=== PATIENT | female | born 1995 | race American Indian/Alaskan Native ===

== ENCOUNTER 2017-06-19 13:56 | Inpatient (IN) | payer MEDICAID ==
[2017-06-19] MEDS ORDERED: MINERAL OIL PO PRN (15:23)
[2017-06-19] MEDS ORDERED: BRETHINE IVP PRN (15:23)
[2017-06-19] MEDS ORDERED: STADOL IV PRN (15:23)
[2017-06-19] MEDS ORDERED: BRETHINE SUB-Q PRN (15:23)
[2017-06-19] MEDS ORDERED: XYLOCAINE 2% INFILTRATI ONE (15:23)
[2017-06-19] MEDS ORDERED: CERVIDIL VG ONE (15:23)
[2017-06-19] MEDS ORDERED: ZOFRAN IV PRN (15:23)
[2017-06-19] MEDS ORDERED: NARCAN 0.4 MG/1 ML IV PRN (15:23)
[2017-06-19] MEDS ORDERED: CELESTONE SOLUSPAN IM ONE ×2 (15:31→19:39)
[2017-06-19] MEDS ORDERED: D50W (25GM) Syringe IV PRN (15:31)
[2017-06-19] MEDS ORDERED: HumuLIN R SUB-Q PRN (15:31)
[2017-06-19 15:37] LABS: Hematocrit 32.5 % (30.3-42.9); Mean Corpuscular HGB Conc 34 % (30-34); Mean Corpuscular Hemoglobin 25 pg (28-32); Mean Corpuscular Volume 75 fl (79-97); Platelet Count 181 K/mm3 (140-440); Red Blood Count 4.32 M/mm3 (3.65-5.03); Red Cell Distribution Width 15.2 % (13.2-15.2)
[2017-06-19] MEDS ORDERED: PITOCin/NS 20 UNIT/1000ML DRIP 20 UNITS/1,000 ML BAG IV SCH (16:00)
[2017-06-19] MEDS ORDERED: POLYCILLIN/NS 2 GM/100 ML 2 GM/100 ML BAG IV ONE ×2 (19:40→19:53)
[2017-06-19] MEDS: SUBLIMAZE IV PRN ×2 (20:14→23:41)
[2017-06-20] MEDS ORDERED: PITOCin/NS 30 UNIT/500ML 30,000 MILLIUNITS/500 ML BAG IV ONE (00:20)
[2017-06-20] MEDS: AMPICILLIN/NS 1 GM/50 ML 1 GM/50 ML BAG IV SCH ×2 (02:15→06:15)
[2017-06-20] MEDS: PITOCin/NS 30 UNIT/500ML 30 UNITS/500 ML BAG IV SCH ×8 (05:03→12:14)
[2017-06-20] MEDS: NORMOSOL-R PH 7.4 1,000 ML IV SCH ×3 (05:20→14:25)
--- NOTE | 2017-06-20 08:15 | History and Physical Report ---
History of Present Illness Date of examination: 06/20/17 Date of admission: 06/19/17 13:56 History of present illness: 22 yo LMP EDC 07/11/2017 @ 37 weeks gestation presented yesterday afternoon for induction of labor per [facility] recommendation. Seen by [facility] yesterday and for routine morbid obesity monitoring had had BPP 6/10 with RAFIA of 5.43cm. Cervidil placed in afternoon and was removed for tachysytole. Low dose PItocin started and ran through the night. Currently 1cm/60/-3/vtx. Reactive and Category 1 tracing. First trimester entry into care at 11 weeks gestation. course complicated by morbid obesity with COBY comang't. 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 GBS unknown at initiation of induction. Voiced positive FM, negative LOF, contractions or VB. Past History Past Medical History: other (+) Past Surgical History: no surgical history Family/Genetic History: none Social history: no significant social history - Obstetrical History Expected Date of Delivery: 07/11/17 Actual Gestation: 37 Week(s) 0 Day(s) : 1 Medications and Allergies Allergies Allergy/AdvReac Type Severity Reaction Status Date / Time No Known Allergies Allergy Unverified 03/06/15 09:35 Home Medications Medication Instructions Recorded Confirmed Last Taken Type No Known Home Medications [No 06/19/17 06/19/17 Unknown History Reported Home Medications] Active Meds: Active Medications Butorphanol Tartrate (Stadol) 2 mg IV Q2H PRN PRN Reason: Pain , Severe (7-10) Ephedrine Sulfate (Ephedrine Sulfate) 10 mg IV Q2M PRN PRN Reason: Hypotension Fentanyl (Sublimaze) 100 mcg IV Q2H PRN PRN Reason: Labor Pain Last Admin: 06/19/17 23:41 Dose: 100 mcg Parenteral Electrolytes (Normosol-R Ph 7.4) 1,000 mls @ 125 mls/hr IV DIRECT NICOLETTE Last Admin: 06/20/17 05:20 Dose: 125 mls/hr Oxytocin/Sodium Chloride (Pitocin/Ns 20 Unit/1000ml Drip) 20 units in 1,000 mls @ 125 mls/hr IV DIRECT NICOLETTE Oxytocin/Sodium Chloride (Pitocin/Ns 30 Unit/500ml) 30 units in 500 mls @ 4 mls /hr IV TITR NICOLETTE; Protocol Last Admin: 06/20/17 05:03 Dose: 2 mls/hr, 2 mls/hr Ampicillin Sodium (Ampicillin/Ns 1 Gm/50 Ml) 1 gm in 50 mls @ 100 mls/hr IV Q4HR NICOLETTE; Protocol Last Admin: 06/20/17 06:15 Dose: 100 mls/hr Mineral Oil (Mineral Oil) 30 ml PO QHS PRN PRN Reason: Constipation Naloxone HCl (Narcan 0.4 Mg/1 Ml) 0.1 mg IV Q2MIN PRN PRN Reason: Res Rate </= 8 or 02 SAT < 92% Ondansetron HCl (Zofran) 4 mg IV Q8H PRN PRN Reason: Nausea And Vomiting Terbutaline Sulfate (Brethine) 0.25 mg SUB-Q ONCE PRN PRN Reason: Hyperstimulation/Hypertonicity Terbutaline Sulfate (Brethine) 0.25 mg IVP ONCE PRN PRN Reason: Hyperstimulation/Hypertonicity Review of Systems All systems: negative - Vital Signs Vital signs: Vital Signs Temp Pulse Resp BP Pulse Ox 96.7 F L 103 H 20 109/69 98 06/19/17 14:42 06/19/17 14:42 06/19/17 14:42 06/19/17 14:42 06/19/17 14:42 Temp Pulse Resp BP Pulse Ox 96.7 F L 93 H 20 118/57 98 06/19/17 14:42 06/20/17 03:41 06/19/17 14:42 06/20/17 03:41 06/20/17 02:12 - Physical Exam Abdomen: Positive: normal appearance Genitourinary (Female): Positive: normal external genitalia, normal perenium - Obstetrical FHR: category 1 Uterine Contraction Monitor Mode: External Cervical Dilatation: 1 Cervical Effacement Percentage: 60 station: -3 Results Result Diagrams: 06/19/17 15:26 Abnormal lab results 06/19/17 Range/Units 15:26 MCV 75 L (79-97) fl MCH 25 L (28-32) pg All other labs normal. Assessment and Plan A: IUP at 37 weeks Induction of Labor Lagging Femur Length (below 10%) Oligohydramnios EFW 6lbs (25%) Nonreasurring BPP 3/13 6/10 Unfavorable Cervix Unknown GBS Status P: Hooker Bulb Active Lyndon't Pitocin
--- NOTE | 2017-06-20 08:44 | Event Note ---
Date: 06/20/17 Patient voiced only received 3 tabs of medication for trichomonas. Casar now.
[2017-06-20] MEDS ORDERED: FLAGYL PO NR (09:00)
--- NOTE | 2017-06-20 13:06 | Event Note ---
Date: 06/20/17 IOL for oligo at 37 weeks patient without complaints NST cat 1 pelvic /-2 Arom clear iupc and fse continue pitocin offer epidural expect vaginal delivery
--- NOTE | 2017-06-20 13:32 | Anesthesia Consultation ---
Anesthesia Consult and Med Hx Date of service: 06/20/17 - Airway Anesthetic Teeth Evaluation: Good ROM Head & Neck: Adequate Mental/Hyoid Distance: Adequate Mallampati Class: Class II Intubation Access Assessment: Probably Good - Pre-Operative Health Status ASA Pre-Surgery Classification: ASA2 Proposed Anesthetic Plan: Epidural - Pulmonary Hx Asthma: No COPD: No Hx Pneumonia: No - Cardiovascular System Hx Hypertension: No - Central Nervous System Hx Seizures: No Hx Psychiatric Problems: No - Endocrine Hx Renal Disease: No Hx End Stage Renal Disease: No Hx Hypothyroidism: No Hx Hyperthyroidism: No - Hematic Hx Anemia: No Hx Sickle Cell Disease: Yes (trait) - Other Systems Hx Alcohol Use: No
[2017-06-20] MEDS ORDERED: NARCAN 2 MG/2 ML IV PRN (13:33)
[2017-06-20] MEDS ORDERED: ePHEDrine SULFATE IV PRN (13:33)
[2017-06-20] MEDS: ePHEDrine SULFATE IV PRN ×2 (13:58→14:01)
[2017-06-20] MEDS ORDERED: fentaNYL-BUPIV 2 MCG/ML-0.125% 200 MCG/100 ML BAG EPIDURAL SCH ×2 (14:00→20:00)
[2017-06-20] MEDS ORDERED: BICITRA PO ONE (16:00)
[2017-06-20] MEDS ORDERED: ANCEF/STERILE WATER 2 GM/20 ML 2 GM/20 ML SYRINGE IV NR (16:00)
[2017-06-20] MEDS ORDERED: PEPCID IV ONE ×2 (16:00→16:45)
[2017-06-20] MEDS ORDERED: NORMOSOL-R PH 7.4 1,000 ML IV SCH (16:00)
[2017-06-20] MEDS ORDERED: REGLAN IV ONE (16:00)
[2017-06-20] MEDS ORDERED: BICITRA ONE (16:45)
[2017-06-20] MEDS ORDERED: REGLAN ONE (16:45)
[2017-06-20] MEDS ORDERED: ANCEF/STERILE WATER 2 GM/20 ML 2 GM/20 ML SYRINGE IV ONE (16:45)
[2017-06-20] MEDS ORDERED: NACL 0.9% 1000 ML 1,000 ML ONE (16:54)
--- NOTE | 2017-06-20 17:17 | Event Note ---
Date: 06/20/17 was notified by nurse patient had deep variable decels to 60s with late componenet remote from delivery with sve /2 discussed plan initiated amnioinfusion discussed primary csec for nrfht understands r/b/a which include bleeding infection, damage to pelvic and non pelvic organs risk of hysterectomy , risk of . she desires to proceed
[2017-06-20] MEDS ORDERED: TORADOL ONE (17:38)
[2017-06-20] MEDS ORDERED: ZOFRAN ONE (17:38)
[2017-06-20] MEDS ORDERED: XYLOCAINE MPF 2% ONE ×4 (17:38→17:48)
[2017-06-20] MEDS ORDERED: METHERGINE IM ONE (17:48)
[2017-06-20] MEDS ORDERED: ASTRAMORPH PF 10MG/10ML ONE (17:52)
--- NOTE | 2017-06-20 18:25 | Operative Report ---
Operative Report Operative Report: DATE OF OPERATION: 06/20/17 PREOPERATIVE DIAGNOSES: 1. Intrauterine gestation at 37 weeks 2. [facility] POSTOPERATIVE DIAGNOSES: 1. BETH 3. short cord OPERATION PERFORMED: Primary low transverse section. SURGEON: Ally Devries MD ANESTHESIA: Epidural. COMPLICATIONS: None. ESTIMATED BLOOD LOSS: 600 mL. DRAINS: Hooker catheter to the bladder. SPECIMENS TO PATHOLOGY: Cord blood for routine testing. OPERATIVE FINDINGS: A viable female infant with Apgars of 8 and 8 and birthweight of 6 pounds 10 ounces was delivered from a cephalic presentationposterior position. The cord contained 3 vessels. There was normal anterior fundal placenta. The amniotic fluid was clear. The uterus, fallopian tubes and ovaries were normal. DESCRIPTION OF OPERATION: The patient was brought to the operating suite in stable condition with epidural anesthesia on board and an indwelling catheter in place in the bladder. The patient was placed supine on the operating room table and rolled to her left side with a wedge. The abdomen was prepped and draped in standard fashion for section. After testing with forceps to assure an adequate anesthetic level, the surgery was commenced. We had counseled the patient extensively regarding the risks of the surgery including but not limited to stroke, embolus, phlebitis, pain, infection, hemorrhage, as well as injury to the infant and the internal organs such as the bowel, bladder, blood vessels, nerves, kidneys, ureters and pelvic organs. The patient was aware of the postoperative morbidity issues and recovery timeframes. The patient was aware she can form adhesions, which can result in obstruction of loop of bowel or ureter or chronic pain. She was aware that should she have hemorrhage and require blood transfusion, there was a small chance for exposure to hepatitis or HIV disease. With the scalpel, a Pfannenstiel skin incision was made. Dissection was carried down sharply through the subcutaneous tissues and fascia in a transverse plane with the scalpel, electrocautery and curved Shepherd scissors. The fascia was sharply freed up superiorly and inferiorly from the underlying rectus muscles, which were bluntly and sharply divided. The peritoneum was entered carefully in a clear space with a curved hemostat. The peritoneal incision was then extended vertically with Metzenbaum scissors. A retractor and bladder blade were placed. A bladder flap was created by incising transversely through the peritoneum and vesicouterine fold and then bluntly dissecting the bladder distally. With the scalpel, a low transverse hysterotomy was commenced. The serosa and myometrium were scored with the scalpel. The uterine cavity was actually entered bluntly with a curved hemostat. The uterine incision was then extended laterally with the grinder operator external tool's fingers. An intrauterine hand was placed and the head of the was brought up out of the pelvis into the uterine incision. With fundal pressure, he was delivered without difficulty. The nasopharynx and oropharynx were suctioned. The cord was doubly clamped and transected. The was then handed off to the nursery personnel. Apgars were good at 8 and 8. A cord pH was obtained, which subsequently revealed a normal value. Further cord blood was collected for routine testing. Intravenous Pitocin administered. The placenta was manually removed. The uterine cavity was then curetted with a dry sponge and freed of the remaining membranes. The edges of the uterine incision were grasped with Puentes clamps. With the massage and the Pitocin, the uterus began to firm up normally. The uterine incision was then closed in 2 layers of 0 Vicryl sutures. The first suture was placed to the endometrium and myometrium. The second suture was placed through the endopelvic fascia and also reincorporated the bladder flap peritoneum. Peritoneal lavage was then performed. The pelvis and gutters were irrigated and suctioned and cleared of all blood and clots and amniotic fluid. The uterine incision was reinspected to assure hemostasis. The uterus, tubes and ovaries were inspected and were normal. Once we were satisfied with the hemostasis, attention was turned to closure of the abdominal incision. The peritoneum, muscles and fascia were closed in layers using 0-Vicryl sutures. The subcutaneous tissue was closed with 3-0 plain sutures. The skin was closed with a subcuticular suture of 4-0 Vicryl followed by benzoin, Steri-Strips and a Telfa dressing. The patient was moved to the recovery room in stable condition with the Hooker catheter draining clear urine. Instruments, sponge and needle counts were reported as correct. Estimated blood loss was 600 mL. There were no complications.
[2017-06-20] MEDS ORDERED: PHENERGAN PR PRN ×2 (18:26→19:01)
[2017-06-20] MEDS ORDERED: MORPHINE IV PRN ×3 (18:26→18:36)
[2017-06-20] MEDS ORDERED: LANSINOH TP PRN (18:26)
[2017-06-20] MEDS ORDERED: MILK OF MAGNESIA PO PRN (18:26)
[2017-06-20] MEDS ORDERED: TUCKS PAD TP PRN (18:26)
[2017-06-20] MEDS ORDERED: TYLENOL PO PRN (18:26)
[2017-06-20] MEDS ORDERED: TORADOL IV PRN ×2 (18:26)
[2017-06-20] MEDS ORDERED: NORCO 5/325 PO PRN (18:26)
[2017-06-20] MEDS ORDERED: MYLICON PO PRN (18:26)
[2017-06-20] MEDS ORDERED: NARCAN 0.4 MG/1 ML IV PRN ×2 (18:26→19:01)
[2017-06-20] MEDS ORDERED: ANUCORT-HC PR PRN (18:26)
[2017-06-20] MEDS ORDERED: SENOKOT PO PRN (18:26)
[2017-06-20] MEDS ORDERED: SODIUM CHLORIDE FLUSH SYRINGE 10 ML IV NR (19:00)
[2017-06-20] MEDS ORDERED: PITOCin/NS 20 UNIT/1000ML DRIP 20 UNITS/1,000 ML BAG IV SCH ×2 (19:00→20:00)
[2017-06-20] MEDS ORDERED: NUBAIN IV PRN (19:01)
[2017-06-20] MEDS ORDERED: DILAUDID IV PRN (19:01)
[2017-06-20] MEDS ORDERED: PHENERGAN PO PRN (19:01)
[2017-06-20] MEDS ORDERED: BENADRYL IV PRN (19:01)
[2017-06-20] MEDS ORDERED: ZOFRAN IV PRN (19:01)
[2017-06-20] MEDS ORDERED: SODIUM CHLORIDE FLUSH SYRINGE 10 ML IV SCH (20:00)
[2017-06-20] MEDS: D5LR 1,000 ML IV SCH (23:48)
[2017-06-21] MEDS ORDERED: BOOSTRIX IM ONE (06:00)
[2017-06-21] MEDS ORDERED: M-M-R II VACCINE SUB-Q ONE (06:00)
[2017-06-21] MEDS: D5LR 1,000 ML IV SCH (06:40)
--- NOTE | 2017-06-21 08:36 | Progress Note ---
Assessment and Plan A/P POD #1 s/p primary csec VSS bottle feeding pain well controlled encourage ambulation continue present mgt await Post op cbc Subjective - Subjective Date of service: 06/21/17 Principal diagnosis: s/p primary csec for nrfht Patient reports: appetite normal, voiding normally, pain well controlled, flatus , ambulating normally : doing well, bottle feeding Objective - Vital Signs Latest vital signs: Vital Signs Temp Pulse Resp BP Pulse Ox 06/21/17 04:58 98.4 F 85 20 128/68 96 06/21/17 00:32 97.9 F 90 20 129/62 06/20/17 20:35 98.3 F 99 H 20 115/55 100 06/20/17 19:40 92 H 17 131/80 100 06/20/17 19:31 98.5 F 06/20/17 19:30 92 H 19 121/67 99 06/20/17 19:25 92 H 18 122/65 100 06/20/17 19:20 99 H 18 116/55 100 06/20/17 19:14 103 H 22 117/74 100 06/20/17 19:12 99 H 06/20/17 19:10 100 H 18 118/67 100 18 19:05 101 H 19 129/74 100 06/20/17 19:00 95 H 20 122/70 100 06/20/17 18:55 94 H 17 117/68 100 18 18:50 91 H 16 121/62 100 18 18:40 100 H 14 115/45 100 06/20/17 18:30 94 H 16 113/53 100 06/20/17 18:24 104 H 15 100 18 17:06 129 H 100 06/20/17 17:01 132 H 100 18 16:57 121 H 96/47 18 16:56 121 H 100 18 16:51 108 H 100 18 16:46 110 H 100 18 16:42 116 H 92/45 18 16:41 114 H 100 18 16:36 113 H 100 18 16:31 110 H 100 06/20/17 16:26 105 H 93/53 100 03/14/18 16:21 102 H 100 03/14/18 16:16 111 H 105/51 100 03/14/18 16:12 114 H 92 03/14/18 16:11 103 H 100 03/14/18 16:06 99 H 100 03/14/18 16:04 18 03/14/18 16:01 109 H 100 03/14/18 15:56 103 H 103/53 100 03/14/18 15:51 105 H 100 03/14/18 15:46 109 H 100 03/14/18 15:42 100 H 107/51 03/14/18 15:41 97 H 100 03/14/18 15:36 104 H 100 03/14/18 15:31 112 H 100 03/14/18 15:28 104 H 90/52 03/14/18 15:26 109 H 100 03/14/18 15:21 91 H 100 03/14/18 15:17 111 H 126/58 03/14/18 15:16 95 H 100 03/14/18 15:14 110 H 85/43 03/14/18 15:12 108 H 87/45 03/14/18 15:11 112 H 100 03/14/18 15:08 116 H 100 03/14/18 15:03 110 H 100 03/14/18 14:58 105 H 100 03/14/18 14:53 118 H 113/56 100 03/14/18 14:52 67 85 03/14/18 14:48 114 H 100 03/14/18 14:43 111 H 122/54 03/14/18 14:38 117 H 104/57 03/14/18 14:32 118 H 102/59 03/14/18 14:27 123 H 101/58 03/14/18 14:22 114 H 100/55 03/14/18 14:17 113 H 98/51 03/14/18 14:14 108 H 108/55 03/14/18 14:07 100 H 116/59 03/14/18 14:02 100 H 112/65 03/14/18 13:58 85 104/59 03/14/18 13:56 96 H 110/59 03/14/18 13:55 101 H 121/56 03/14/18 13:53 97.6 F 18 03/14/18 13:52 94 H 106/58 03/14/18 13:50 99 H 114/56 06/20/17 13:49 101 H 122/59 06/20/17 11:39 96 H 100/56 06/20/17 11:24 98 H 105/59 06/20/17 10:39 113 H 114/64 06/20/17 10:25 100 H 107/53 06/20/17 10:09 103 H 98/56 06/20/17 09:54 90 100/59 06/20/17 09:39 85 97/57 06/20/17 09:25 93 H 113/77 06/20/17 09:10 95 H 136/68 06/20/17 08:59 111 H 99 06/20/17 08:54 84 116/72 97 06/20/17 08:49 102 H 98 06/20/17 08:45 96.9 F L 18 06/20/17 08:44 93 H 98 06/20/17 08:39 86 113/75 98 Intake and Output 06/20/17 06/21/17 06/21/17 23:59 07:59 15:59 Intake Total 2000 978.333 Output Total 150 400 Balance 1850 578.333 Intake: IV 2000 858.333 D5lr 1,000 ml @ 125 mls/ 858.333 hr IV DIRECT NICOLETTE Rx#: [id number] Intake, Free Water 120 Output: Urine 150 400 Indwelling Catheter 400 Other: Total, Output Amount 400 Estimated Blood Loss 600 - Exam Breasts: Present: normal Cardiovascular: Present: Regular rate, Normal S1 Lungs: Present: Clear to auscultation, Normal air movement Abdomen: Present: normal appearance, soft, normal bowel sounds. Absent: distention, tenderness, guarding Vulva: both: normal Uterus: Present: normal, firm, fundal height below umbilicus. Absent: bogginess , tenderness Extremities: Present: normal Deep Tendon Reflex Grade: Normal +2 Incision: Present: normal, dressed
[2017-06-21] MEDS ORDERED: BENADRYL PO PRN (08:38)
[2017-06-21 09:02] LABS: Hemoglobin 9.5 gm/dl (10.1-14.3)
[2017-06-21] MEDS: MOTRIN PO PRN (16:18)
[2017-06-21] MEDS: PERCOCET 5/325 PO PRN (19:28)
[2017-06-22] MEDS: PERCOCET 5/325 PO PRN ×3 (05:46→22:40)
--- NOTE | 2017-06-22 06:34 | Progress Note ---
Assessment and Plan A/P POD #2 s/p primary csec VSS bottle feeding and breast feeding pain well controlled encourage ambulation continue present mgt h/h 11/32.5-9.5/29 d/c home tomorrow Subjective - Subjective Date of service: 06/22/17 Principal diagnosis: s/p primary csec for nrfht Patient reports: appetite normal, voiding normally, pain well controlled, flatus , bowel movement, ambulating normally : doing well Objective - Vital Signs Latest vital signs: Vital Signs Temp Pulse Resp BP Pulse Ox 06/22/17 01:01 97.8 F 64 18 128/61 98 06/21/17 16:54 97.9 F 72 18 126/65 100 06/21/17 12:46 97.9 F 85 20 126/75 99 06/21/17 07:57 98.3 F 83 18 116/64 99 Intake and Output 06/21/17 06/21/17 06/22/17 15:59 23:59 07:59 Intake Total 360 240 360 Output Total 650 225 Balance -290 15 360 Intake: Oral 360 240 360 Output: Urine 650 225 Void 650 225 Other: Total, Intake Amount 240 240 360 Total, Output Amount 250 225 Voiding Method Toilet # Voids Void 2 - Exam Breasts: Present: normal Cardiovascular: Present: Regular rate, Normal S1 Lungs: Present: Clear to auscultation, Normal air movement Abdomen: Present: normal appearance, soft, normal bowel sounds. Absent: distention, guarding Vulva: both: normal Uterus: Present: normal, firm, fundal height below umbilicus. Absent: bogginess , tenderness Extremities: Present: tenderness Deep Tendon Reflex Grade: Normal +2 Incision: Present: normal, dry, intact - Labs Labs: Abnormal lab results 06/21/17 Range/Units 07:44 Hgb 9.5 L (10.1-14.3) gm/dl Hct 29.0 L (30.3-42.9) %
--- NOTE | 2017-06-22 06:34 | Discharge Summary ---
Providers - Providers Date of Admission: 06/19/17 13:56 Date of discharge: 06/22/17 Attending physician: TANA MARY Primary care physician: TANA MARY Hospitalization Reason for admission: induction of labor Delivery: Procedure: primary low transverse Episiotomy: none Laceration: none Incision: normal, dry, intact Other procedures: none complications: none Discharge diagnosis: IUP at term delivered baby: female Condition at discharge: Good Disposition: DC-01 TO HOME OR SELFCARE Plan - Discharge Medications Prescriptions: Ferrous Sulfate 325 mg PO BID #60 tablet. Ibuprofen [Motrin] 600 mg PO Q8H PRN #30 tablet PRN Reason: Pain oxyCODONE /ACETAMINOPHEN [Percocet 5/325] 1 tab PO Q6HR PRN #30 tablet PRN Reason: Pain - Provider Discharge Summary Activity: routine, no sex for 6 weeks, no strenuous exercise Diet: routine Instructions: routine Additional instructions: [] Smoking cessation referral if applicable(refer to patient education folder for contact #) [] Refer to [facility]'s [facility] Booklet Call your doctor immediately for: * Fever > 100.5 * Heavy vaginal bleeding ( >1 pad per hour) * Severe persistent headache * Shortness of breath * Reddened, hot, painful area to leg or breast * Drainage or odor from incision. * Keep incision clean and dry at all times and follow doctor's instructions regarding bathing/showering - Follow up plan Follow up: TANA MARY MD [Primary Care Provider] - 14 Days
[2017-06-22] MEDS: FEOSOL PO SCH (10:38)
[2017-06-22] MEDS: PRENATAL VITAMIN PO SCH (10:38)
[2017-06-22] MEDS: MOTRIN PO PRN (15:00)
[2017-06-23] MEDS: PERCOCET 5/325 PO PRN (04:01)
[2017-06-23] MEDS: MOTRIN PO PRN (04:02)
[2017-06-23] MEDS: FEOSOL PO SCH (10:09)
[2017-06-23] MEDS: PRENATAL VITAMIN PO SCH (10:09)
[2017-06-23 10:34] VITALS: BP 135/69
== END 2017-06-23 10:59 | disposition home or self-care (01) | DRG 765 ==
LOC: LD 13:56 → OB 06-20 20:08
PROVIDERS: ADMIT Obstetrics & Gynecology; ATTEND Obstetrics & Gynecology
PROC: 10D00Z1 Extraction of Products of Conception, Low, Open Approach (ICD-10-PCS; principal; 2017-06-22)
PROC: 10907ZC Drainage of Amniotic Fluid, Therapeutic from Products of Conception, Via Natural or Artificial Opening (ICD-10-PCS; 2017-06-22)
PROC: 10H07YZ Insertion of Other Device into Products of Conception, Via Natural or Artificial Opening (ICD-10-PCS; 2017-06-22)
PROC: 3E0234Z Introduction of Serum, Toxoid and Vaccine into Muscle, Percutaneous Approach (ICD-10-PCS; 2017-06-23)
DX: O41.03X0 Oligohydramnios, third trimester, not applicable or unspecified (principal); O98.313 Other infections with a predominantly sexual mode of transmission complicating pregnancy, third trimester; O99.214 Obesity complicating childbirth; E66.01 Morbid (severe) obesity due to excess calories; O99.02 Anemia complicating childbirth; O76 Abnormality in fetal heart rate and rhythm complicating labor and delivery; Z3A.37 37 weeks gestation of pregnancy; Z37.0 Single live birth; Z23 Encounter for immunization; Z68.38 Body mass index [BMI] 38.0-38.9, adult; O69.3XX0 Labor and delivery complicated by short cord, not applicable or unspecified; D57.3 Sickle-cell trait; A59.9 Trichomoniasis, unspecified
CPT/HCPCS: 36415; 59200; 85014; 85018; 85027; 86592; 86850; 86900; 86901; 88307; 90471; 90715; 99211; G0463; J0290; J0690; J0702; J1200; J1885; J2210; J2274; J2300; J2405; J2590; J2765; J3010; J7030; J7121

== ENCOUNTER 2018-10-16 20:01 | Emergency (ER) | payer MEDICAID ==
--- NOTE | 2018-10-16 21:07 | Emergency Department Report ---
Blank Doc - Documentation Documentation: This is a 23-year-old female that presents with lower back pain s/p heavy lift ing. Denies any injuries. This initial assessment/diagnostic orders/clinical plan/treatment(s) is/are subject to change based on patient's health status, clinical progression and re- assessment by fellow clinical providers in the ED. Further treatment and workup at subsequent clinical providers discretion. Patient/guardians urged not to elope from the ED as their condition may be serious if not clinically assessed and managed. Initial orders include: 1- Patient sent to [facility] for further evaluation and treatment
[2018-10-16 21:09] VITALS: BP 138/62
[2018-10-16] MEDS ORDERED: FLEXERIL ONE (22:30)
[2018-10-16] MEDS ORDERED: TYLENOL ONE (22:30)
[2018-10-16] MEDS ORDERED: IBUPROFEN PO ONE ×2 (22:30)
[2018-10-16] MEDS ORDERED: FLEXERIL PO ONE (22:30)
[2018-10-16] MEDS ORDERED: TYLENOL PO ONE (22:30)
--- NOTE | 2018-10-16 22:54 | Emergency Department Report ---
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 She reports initially hurting her back and shoulder about one month ago, has been nagging pain off and on since that time. States she had reaggravated or even worsened previous injury while lifting heavy boxes of food on yesterday. Pain is to the left shoulder blade and mid back region is worse with pushing homework and overhead. No numbness or tingling. No coughing, no congestion, no fever, chills, sweats, palpitations, nausea, vomiting. MD Complaint: back pain Similar Symptoms Previously: Yes Place: work Severity: mild Quality: dull Consistency: constant Improves With: none Worsens With: none Context: while lifting Associated Symptoms: denies: chest pain, numbness, cough, difficulty urinating, incontinence, fever/chills, constipation, headaches, abdominal pain, rash, seizure, shortness of breath, syncope - Related Data Previous Rx's Medication Instructions Recorded Last Taken Type Ferrous Sulfate 325 mg PO BID #60 tablet. 06/20/17 Unknown Rx Ibuprofen [Motrin] 600 mg PO Q8H PRN #30 tablet 06/20/17 Unknown Rx oxyCODONE /ACETAMINOPHEN [Percocet 1 tab PO Q6HR PRN #30 tablet 06/20/17 Unknown Rx 5/325] Ketorolac [Toradol] 10 mg PO Q6H PRN #15 tablet 10/16/18 Unknown Rx methOCARBAMOL [Robaxin TAB] 750 mg PO Q8H PRN #14 tablet 10/16/18 Unknown Rx Allergies Allergy/AdvReac Type Severity Reaction Status Date / Time No Known Allergies Allergy Unverified 03/06/15 09:35 ED Review of Systems ROS: Stated complaint: BACK AND SHOULDER PAIN Other details as noted in HPI Comment: All other systems reviewed and negative ED Past Medical Hx - Past Medical History Previous Medical History?: Yes Hx Hypertension: No Hx Congestive Heart Failure: No Hx Diabetes: No Hx Deep Vein Thrombosis: No Hx Renal Disease: No Hx Sickle Cell Disease: Yes (trait) Hx Seizures: No Hx Psychiatric Treatment: Yes (DEPRESSION) Hx Asthma: No Hx COPD: No Hx HIV: No - Surgical History Past Surgical History?: No Additional Surgical History: x1, 2018 - Social History Smoking Status: Never Smoker Substance Use Type: None - Medications Home Medications: Home Medications Medication Instructions Recorded Confirmed Last Taken Type Ferrous Sulfate 325 mg PO BID #60 tablet. 06/20/17 Unknown Rx Ibuprofen [Motrin] 600 mg PO Q8H PRN #30 tablet 06/20/17 Unknown Rx oxyCODONE /ACETAMINOPHEN [Percocet 1 tab PO Q6HR PRN #30 tablet 06/20/17 Unknown Rx 5/325] Ketorolac [Toradol] 10 mg PO Q6H PRN #15 tablet 10/16/18 Unknown Rx methOCARBAMOL [Robaxin TAB] 750 mg PO Q8H PRN #14 tablet 10/16/18 Unknown Rx ED Physical Exam - General Limitations: No Limitations General appearance: alert, in no apparent distress - Head Head exam: Present: atraumatic, normocephalic - Eye Eye exam: Present: normal appearance, PERRL Pupils: Present: normal accommodation - ENT ENT exam: Present: normal exam, normal orophraynx, mucous membranes moist, TM's normal bilaterally - Neck Neck exam: Present: normal inspection, full ROM - Respiratory Respiratory exam: Present: normal lung sounds bilaterally. Absent: respiratory distress, wheezes, rales, chest wall tenderness, accessory muscle use, decreased breath sounds - Cardiovascular Cardiovascular Exam: Present: regular rate, normal rhythm. Absent: systolic murmur, diastolic murmur, rubs, gallop - GI/Abdominal GI/Abdominal exam: Present: soft, normal bowel sounds - Extremities Exam Extremities exam: Present: normal inspection, full ROM, normal capillary refill - Back Exam Back exam: Present: normal inspection, tenderness, paraspinal tenderness (tenderness of the left upper trapezial region and the upper aspect of the latissimus dorsa. No midline tenderness. Full range of motion. Pulses 2+. Capillary refill is brisk. Normal Neri and Yamhill's test) - Neurological Exam Neurological exam: Present: alert, oriented X3, CN II-XII intact, normal gait - Psychiatric Psychiatric exam: Present: normal affect, normal mood - Skin Skin exam: Present: warm, dry, intact, normal color. 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 Left looks like is secondary to a muscle strain. Culture about a position of ice and anti-inflammatory also restrictive lifting duties at work for the next few days. Critical care attestation.: If time is entered above; I have spent that time in minutes in the direct care of this critically ill patient, excluding procedure time. ED Disposition Clinical Impression: Back strain Disposition: DC- TO HOME OR SELFCARE Is pt being admited?: No Does the pt Need Aspirin: No Condition: Stable Instructions: Muscle Strain (ED) Prescriptions: methOCARBAMOL [Robaxin TAB] 750 mg PO Q8H PRN #14 tablet PRN Reason: Pain, Moderate (4-6) Ketorolac [Toradol] 10 mg PO Q6H PRN #15 tablet PRN Reason: Pain Referrals: LISA NORMAN MD [Primary Care Provider] - 3-5 Days
== END 2018-10-16 23:25 | disposition home or self-care (01) ==
LOC: ED 20:01
DX: S29.012A Strain of muscle and tendon of back wall of thorax, initial encounter (principal); F32.9 Major depressive disorder, single episode, unspecified; X50.0XXA Overexertion from strenuous movement or load, initial encounter; Y93.89 Activity, other specified; Y92.89 Other specified places as the place of occurrence of the external cause; Y99.8 Other external cause status
CPT/HCPCS: 99282

== ENCOUNTER 2019-04-21 09:16 | Emergency (ER) | payer OTHER, MEDICAID ==
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
[2019-04-21 13:40] VITALS: BP 130/71
== END 2019-04-21 13:39 | disposition home or self-care (01) ==
LOC: ED 09:16
DX: M54.5 Low back pain (principal); M54.2 Cervicalgia; M25.512 Pain in left shoulder; G89.29 Other chronic pain; F32.9 Major depressive disorder, single episode, unspecified; E66.9 Obesity, unspecified; Z68.41 Body mass index [BMI] 40.0-44.9, adult; Z79.899 Other long term (current) drug therapy

== ENCOUNTER 2019-09-08 18:51 | Emergency (ER) | payer BC, MEDICAID ==
--- NOTE | 2019-09-08 22:06 | Emergency Department Report ---
- General Chief complaint: Skin/Abscess/Foreign Body Stated complaint: BUG BITE Time Seen by Provider: 09/08/19 21:15 Source: patient Mode of arrival: Ambulatory Limitations: No Limitations - History of Present Illness Initial comments: This is a 24-year-old female nontoxic, well nourished in appearance, no acute signs of distress presents to the ED with c/o of redness and pain to right leg pain. Patient stated is unsure what bite her. Patient denies any pus or drainage. Patient denies any fever, chills, nausea, vomiting, chest pain, shortness of breath, headache or stiff neck. Patient denies any allergies or significant past medical history. Denies being UTD with tetanus. MD complaint: insect bite/sting -: days(s) Tetanus Up to Date: no Location: LLE Severity: mild Severity scale (0 -10): 8 Quality: aching Consistency: constant Improves with: none Worsens with: none Context: none Associated symptoms: denies other symptoms Treatments Prior to Arrival: none - Related Data Previous Rx's Medication Instructions Recorded Last Taken Type Ferrous Sulfate 325 mg PO BID #60 tablet. 06/20/17 Unknown Rx Ibuprofen [Motrin] 600 mg PO Q8H PRN #30 tablet 06/20/17 Unknown Rx oxyCODONE /ACETAMINOPHEN [Percocet 1 tab PO Q6HR PRN #30 tablet 06/20/17 Unknown Rx 5/325] Ketorolac [Toradol] 10 mg PO Q6H PRN #15 tablet 10/16/18 Unknown Rx methOCARBAMOL [Robaxin TAB] 750 mg PO Q8H PRN #14 tablet 10/16/18 Unknown Rx Clindamycin [Clindamycin CAP] 300 mg PO Q8H #21 cap 09/08/19 Unknown Rx Naproxen 500 mg PO Q12H PRN #12 tablet 09/08/19 Unknown Rx Allergies Allergy/AdvReac Type Severity Reaction Status Date / Time No Known Allergies Allergy Verified 09/08/19 19:17 Abscess Boil HPI - HPI Chief Complaint: Skin/Abscess/Foreign Body Stated Complaint: BUG BITE Time Seen by Provider: 09/08/19 21:15 Home Medications: Previous Rx's Medication Instructions Recorded Last Taken Type Ferrous Sulfate 325 mg PO BID #60 tablet. 06/20/17 Unknown Rx Ibuprofen [Motrin] 600 mg PO Q8H PRN #30 tablet 06/20/17 Unknown Rx oxyCODONE /ACETAMINOPHEN [Percocet 1 tab PO Q6HR PRN #30 tablet 06/20/17 Unknown Rx 5/325] Ketorolac [Toradol] 10 mg PO Q6H PRN #15 tablet 10/16/18 Unknown Rx methOCARBAMOL [Robaxin TAB] 750 mg PO Q8H PRN #14 tablet 10/16/18 Unknown Rx Clindamycin [Clindamycin CAP] 300 mg PO Q8H #21 cap 09/08/19 Unknown Rx Naproxen 500 mg PO Q12H PRN #12 tablet 09/08/19 Unknown Rx Allergies/Adverse Reactions: Allergies Allergy/AdvReac Type Severity Reaction Status Date / Time No Known Allergies Allergy Verified 09/08/19 19:17 ED Review of Systems ROS: Stated complaint: BUG BITE Other details as noted in HPI Constitutional: denies: chills, fever Eyes: denies: eye pain, eye discharge, vision change ENT: denies: ear pain, throat pain Respiratory: denies: cough, shortness of breath, wheezing Cardiovascular: denies: chest pain, palpitations Endocrine: no symptoms reported Gastrointestinal: denies: abdominal pain, nausea, diarrhea Genitourinary: denies: urgency, dysuria, discharge Musculoskeletal: denies: back pain, joint swelling, arthralgia Skin: denies: rash, lesions Neurological: denies: headache, weakness, paresthesias Psychiatric: denies: anxiety, depression Hematological/Lymphatic: denies: easy bleeding, easy bruising ED Past Medical Hx - Past Medical History Previous Medical History?: Yes Hx Hypertension: No Hx Congestive Heart Failure: No Hx Diabetes: No Hx Deep Vein Thrombosis: No Hx Renal Disease: No Hx Sickle Cell Disease: Yes (trait) Hx Seizures: No Hx Psychiatric Treatment: Yes (DEPRESSION) Hx Asthma: No Hx COPD: No Hx HIV: No - Surgical History Past Surgical History?: Yes Additional Surgical History: x1, 2018 - Social History Smoking Status: Never Smoker Substance Use Type: None - Medications Home Medications: Home Medications Medication Instructions Recorded Confirmed Last Taken Type Ferrous Sulfate 325 mg PO BID #60 tablet. 06/20/17 Unknown Rx Ibuprofen [Motrin] 600 mg PO Q8H PRN #30 tablet 06/20/17 Unknown Rx oxyCODONE /ACETAMINOPHEN [Percocet 1 tab PO Q6HR PRN #30 tablet 06/20/17 Unknown Rx 5/325] Ketorolac [Toradol] 10 mg PO Q6H PRN #15 tablet 10/16/18 Unknown Rx methOCARBAMOL [Robaxin TAB] 750 mg PO Q8H PRN #14 tablet 10/16/18 Unknown Rx Clindamycin [Clindamycin CAP] 300 mg PO Q8H #21 cap 09/08/19 Unknown Rx Naproxen 500 mg PO Q12H PRN #12 tablet 09/08/19 Unknown Rx ED Physical Exam - General Limitations: No Limitations General appearance: alert, in no apparent distress - Head Head exam: Present: atraumatic, normocephalic - Neck Neck exam: Present: normal inspection, full ROM - Extremities Exam Extremities exam: Present: normal inspection, full ROM, tenderness, normal capillary refill - Expanded Lower Extremity Exam Right Hip exam: Present: normal inspection, full ROM. Absent: tenderness, swelling Upper Leg exam: Present: normal inspection, full ROM. Absent: tenderness, swelling Knee exam: Present: normal inspection, full ROM. Absent: tenderness, swelling Lower Leg exam: Present: normal inspection, full ROM, tenderness, erythema. Absent: swelling, abrasion, laceration, ecchymosis, deformity, crepidus, d islocation, palpable cord, Akin's sign Ankle exam: Present: normal inspection, full ROM. Absent: tenderness, swelling Foot/Toe exam: Present: normal inspection, full ROM. Absent: tenderness, swelling Neuro vascular tendon exam: Present: no vascular compromise Gait: Positive: observed and normal 1 - 3 cm x 3 cm cellulitis ED Course Vital Signs 09/08/19 19:14 Temperature 98.7 F Pulse Rate 102 H Respiratory 18 Rate Blood Pressure 142/88 O2 Sat by Pulse 99 Oximetry - Reevaluation(s) Reevaluation #1: 09/08/19 22:04 Patient is speaking in full sentences with no signs of distress noted. ED Medical Decision Making - Medical Decision Making This is a 24-year-old female that presents with cellulitis. Patient is stable and was examined by me. There is no induration, fluctuance. No signs of abscess formation. The area has been outlined with a permanent marker and patient was instructed to observe symptoms of increased redness or swelling and to return to the ER if this does occur. I will discharge patient with Clinda. Patient did receive a tetanus booster in the ER. Patient was referred to [facility] w-up with a primary care doctor in 3-5 days or if symptoms worsen and continue return to emergency room as soon as possible. At time of discharge, the patient does not seem toxic or ill in appearance. No acute signs of distress noted. Patient agrees to discharge treatment plan of care. No further questions noted by the patient. Critical care attestation.: If time is entered above; I have spent that time in minutes in the direct care of this critically ill patient, excluding procedure time. ED Disposition Clinical Impression: Cellulitis Qualifiers: Site of cellulitis: extremity Site of cellulitis of extremity: lower extremity Laterality: right Qualified Code(s): L03.115 - Cellulitis of right lower limb Disposition: DC-01 TO HOME OR SELFCARE Is pt being admited?: No Does the pt Need Aspirin: No Condition: Stable Instructions: Cellulitis (ED) Additional Instructions: Follow-up with a primary care doctor in 3-5 days or if symptoms worsen and continue return to emergency room as soon as possible. Prescriptions: Clindamycin [Clindamycin CAP] 300 mg PO Q8H #21 cap Naproxen 500 mg PO Q12H PRN #12 tablet PRN Reason: Pain , Severe (7-10) Referrals: VINOD HENDERSON MD [Primary Care Provider] - 3-5 Days LISA NORMAN MD [Staff Physician] - 3-5 Days [facility] [Provider Group] - 3-5 Days Forms: Work/School Release Form(ED)
[2019-09-08] MEDS ORDERED: TETANUS,DIPHTHERIA TOXOID ADULT 0.5 ML INJ IM ONE (22:12)
[2019-09-08 22:35] VITALS: BP 112/52
== END 2019-09-08 22:37 | disposition home or self-care (01) ==
LOC: ED 18:51
DX: L03.115 Cellulitis of right lower limb (principal); Z79.1 Long term (current) use of non-steroidal anti-inflammatories (NSAID); Z79.2 Long term (current) use of antibiotics; Z79.899 Other long term (current) drug therapy; F32.9 Major depressive disorder, single episode, unspecified; Z98.890 Other specified postprocedural states
CPT/HCPCS: 90471; 90714; 99282

== ENCOUNTER 2019-12-22 14:16 | Emergency (ER) | payer OTHER, MEDICAID ==
[2019-12-22 14:34] VITALS: BP 155/82
--- NOTE | 2019-12-22 14:35 | Emergency Department Report ---
ED Lower Extremity HPI - General Stated Complaint: TOE PAIN Time Seen by Provider: 12/22/19 14:31 - History of Present Illness Initial Comments: This is a 24-year-old female nontoxic, well nourished in appearance, no acute signs of distress presents to the ED with c/o of left great toe pain x1 week. 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 Patient denies any new trauma or injuries. Denies joint swelling, redness. Agrees to abnormal gait and decreased ROM due to pain. Denies any fever, chills, nausea, vomiting, headache, stiff neck, chest pain or shortness of breath. Patient denies any numbness or tingling. Denies any allergies. MD Complaint: foot injury -: week(s) Injury: Foot: Left Place: work Severity: mild Severity scale (0 -10): 8 Improves With: nothing Worsens With: nothing Context: direct blow Associated Symptoms: able to partially bear weight. denies: snap/pop sensation, swelling, numbness, tingling, unable to bear weight - Related Data Previous Rx's Medication Instructions Recorded Last Taken Type Ferrous Sulfate 325 mg PO BID #60 tablet. 06/20/17 Unknown Rx Ibuprofen [Motrin] 600 mg PO Q8H PRN #30 tablet 06/20/17 Unknown Rx oxyCODONE /ACETAMINOPHEN [Percocet 1 tab PO Q6HR PRN #30 tablet 06/20/17 Unknown Rx 5/325] Ketorolac [Toradol] 10 mg PO Q6H PRN #15 tablet 10/16/18 Unknown Rx methOCARBAMOL [Robaxin TAB] 750 mg PO Q8H PRN #14 tablet 10/16/18 Unknown Rx Clindamycin [Clindamycin CAP] 300 mg PO Q8H #21 cap 09/08/19 Unknown Rx Naproxen 500 mg PO Q12H PRN #12 tablet 09/08/19 Unknown Rx Naproxen 500 mg PO Q12H PRN #12 tablet 12/22/19 Unknown Rx Allergies Allergy/AdvReac Type Severity Reaction Status Date / Time No Known Allergies Allergy Verified 09/08/19 19:17 ED Review of Systems ROS: Stated complaint: TOE PAIN Other details as noted in HPI Constitutional: denies: chills, fever Eyes: denies: eye pain, eye discharge, vision change ENT: denies: ear pain, throat pain Respiratory: denies: cough, shortness of breath, wheezing Cardiovascular: denies: chest pain, palpitations Endocrine: no symptoms reported Gastrointestinal: denies: abdominal pain, nausea, diarrhea Genitourinary: denies: urgency, dysuria, discharge Musculoskeletal: denies: back pain, joint swelling, arthralgia Skin: denies: rash, lesions Neurological: denies: headache, weakness, paresthesias Psychiatric: denies: anxiety, depression Hematological/Lymphatic: denies: easy bleeding, easy bruising ED Past Medical Hx - Past Medical History Hx Hypertension: No Hx Congestive Heart Failure: No Hx Diabetes: No Hx Deep Vein Thrombosis: No Hx Renal Disease: No Hx Sickle Cell Disease: Yes (trait) Hx Seizures: No Hx Psychiatric Treatment: Yes (DEPRESSION) Hx Asthma: No Hx COPD: No Hx HIV: No - Surgical History Additional Surgical History: x1, 2018 - Social History Smoking Status: Never Smoker Substance Use Type: None - Medications Home Medications: Home Medications Medication Instructions Recorded Confirmed Last Taken Type Ferrous Sulfate 325 mg PO BID #60 tablet. 06/20/17 Unknown Rx Ibuprofen [Motrin] 600 mg PO Q8H PRN #30 tablet 06/20/17 Unknown Rx oxyCODONE /ACETAMINOPHEN [Percocet 1 tab PO Q6HR PRN #30 tablet 06/20/17 Unknown Rx 5/325] Ketorolac [Toradol] 10 mg PO Q6H PRN #15 tablet 10/16/18 Unknown Rx methOCARBAMOL [Robaxin TAB] 750 mg PO Q8H PRN #14 tablet 10/16/18 Unknown Rx Clindamycin [Clindamycin CAP] 300 mg PO Q8H #21 cap 09/08/19 Unknown Rx Naproxen 500 mg PO Q12H PRN #12 tablet 09/08/19 Unknown Rx Naproxen 500 mg PO Q12H PRN #12 tablet 12/22/19 Unknown Rx ED Physical Exam - General General appearance: alert, in no apparent distress - Head Head exam: Present: atraumatic, normocephalic - Neck Neck exam: Present: normal inspection, full ROM - Respiratory Respiratory exam: Absent: respiratory distress - Cardiovascular Cardiovascular Exam: Present: regular rate - Extremities Exam Extremities exam: Present: full ROM, tenderness, normal capillary refill. Absent: joint swelling - Expanded Lower Extremity Exam Left Hip exam: Present: normal inspection, full ROM. Absent: tenderness, swelling Upper Leg exam: Present: normal inspection, full ROM. Absent: tenderness, swelling Knee exam: Present: normal inspection, full ROM. Absent: tenderness, swelling Lower Leg exam: Present: normal inspection, full ROM. Absent: tenderness, swelling Ankle exam: Present: normal inspection, full ROM. Absent: tenderness, swelling Foot/Toe exam: Present: full ROM, tenderness. Absent: swelling, abrasion, laceration, ecchymosis, deformity, crepidus, dislocation, erythema, amputation, puncture wound, foreign body, calcaneal tenderness, tenderness at base of 5th metatarsal, nail avulsion, subungual hematoma Neuro vascular tendon exam: Present: no vascular compromise Gait: Positive: observed and limited by pain - Back Exam Back exam: Present: normal inspection, full ROM - Neurological Exam Neurological exam: Present: alert, oriented X3 - Psychiatric Psychiatric exam: Present: normal affect, normal mood - Skin Skin exam: Present: warm, dry, intact, normal color. Absent: rash ED Course Vital Signs 12/22/19 14:34 Temperature 98 F Pulse Rate 89 Respiratory 18 Rate Blood Pressure 155/82 [Right] O2 Sat by Pulse 100 Oximetry Vital Signs 12/22/19 14:34 Temperature 98 F Pulse Rate 89 Respiratory 18 Rate Blood Pressure 155/82 [Right] O2 Sat by Pulse 100 Oximetry - Reevaluation(s) Reevaluation #1: 12/22/19 14:34 Patient is speaking in full sentences with no signs of distress noted. ED Lower Extremity MDM - Radiology Data Referring Physician: LORETTA SPAIN Patient Name: KEL WHITTINGTON Date of : 1995 Sex: Female Report Date: 2019-12-22 Report Status: Finalized [facility] [address] [place] [address] XRay Report Signed Patient: KEL WHITTINGTON MR#: [id number] : 1995 Acct:[id number] Age/Sex: 24 / F ADM Date: 12/22/19 Loc: ED Attending Dr: Ordering Physician: LORETTA SPAIN NP Date of Service: 12/22/19 Procedure(s): XR foot 3+V LT Accession Number(s): [id number] cc: LORETTA SPAIN NP Fluoro Time In Minutes: Left foot 3 views INDICATION: Left foot pain and injury IMPRESSION: No fracture or subluxation of the left foot is identified. Signer Name: Yunior Mitchell MD Signed: 12/22/2019 3:13 PM Workstation Name: [id number] nscribed By: JONATHON Dictated By: Yunior Mitchell MD Electronically Authenticated By: Yunior Mitchell MD Signed Date/Time: 12/22/191512 DD/ 12 TD/TT: - Medical Decision Making This is a 24-year-old female that presents with foot sprain. Patient is stable and was examined by me. Educated on RICE therapy. Provided JOB wrap. Patient was instructed to Follow-up with a orthopedic doctor in 3-5 days or if symptoms worsen and continue return to emergency room as soon as possible. At time of discharge, the patient does not seem toxic or ill in appearance. No acute signs of distress noted. Patient agrees to discharge treatment plan of care. No further questions noted by the patient. Critical care attestation.: If time is entered above; I have spent that time in minutes in the direct care of this critically ill patient, excluding procedure time. ED Disposition Clinical Impression: Strain of left foot Qualifiers: Encounter type: initial encounter Qualified Code(s): S96.912A - Strain of unspecified muscle and tendon at ankle and foot level, left foot, initial encounter Disposition: DC-01 TO HOME OR SELFCARE Is pt being admited?: No Does the pt Need Aspirin: No Condition: Stable Instructions: RICE Therapy (ED) Additional Instructions: Follow-up with a orthopedic doctor in 3-5 days or if symptoms worsen and continue return to emergency room as soon as possible. Prescriptions: Naproxen 500 mg PO Q12H PRN #12 tablet PRN Reason: Pain , Severe (7-10) Referrals: PRIMARY CAREMD [Referring] - 3-5 Days LISA NORMAN MD [Staff Physician] - 3-5 Days Forms: Work/School Release Form(ED)
--- NOTE | 2019-12-22 15:18 | XRay Report ---
Left foot 3 views INDICATION: Left foot pain and injury IMPRESSION: No fracture or subluxation of the left foot is identified. Signer Name: Yunior Mitchell MD Signed: 12/22/2019 3:13 PM Workstation Name: [id number]
== END 2019-12-22 16:30 | disposition home or self-care (01) ==
LOC: ED 14:16
DX: S96.912A Strain of unspecified muscle and tendon at ankle and foot level, left foot, initial encounter (principal); F32.9 Major depressive disorder, single episode, unspecified; Z98.890 Other specified postprocedural states; Z79.899 Other long term (current) drug therapy; X58.XXXA Exposure to other specified factors, initial encounter; Y93.89 Activity, other specified; Y92.89 Other specified places as the place of occurrence of the external cause; Y99.0 Civilian activity done for income or pay
CPT/HCPCS: 99283

== ENCOUNTER 2020-06-30 18:05 | Emergency (ER) | payer MEDICAID, OTHER ==
[2020-06-30 18:11] VITALS: BP 118/64
[2020-06-30] MEDS ORDERED: ACETAMINOPHEN 500 MG TAB PO ONE (20:26)
--- NOTE | 2020-06-30 20:53 | Emergency Department Report ---
ED General Adult HPI - General Chief complaint: Medical Clearance Stated complaint: PAIN IN BREAST/BOTH Source: patient Mode of arrival: Ambulatory Limitations: No Limitations - History of Present Illness Initial comments: Patient is a A0 25-year-old -Citizen Of [place] female with a history of anxiety and depression as well as morbid obesity who presents to the ED with complaint of acute onset persistent nontraumatic bilateral breast pain for the last 2 days. Patient states that she is also late on her menstrual cycle as her LMP was May 06 through May 17, 2020. Patient states that the pain is worse with palpation of the chest or when she lays down and that the pain is around her areola. Patient denies nausea, vomiting, vaginal bleeding, vaginal discharge, dysuria, urinary frequency and urgency, abdominal pain, diarrhea, fever, chills, cough, sore throat, traumatic injury, change in vision, headache or low back pain. MD Complaint: Bilateral breast pain; late on her menstrual cycle -: Sudden, days(s) (2) Location: chest Radiation: non-radiation Severity scale (0 -10): 7 Quality: aching, sharp Consistency: constant Improves with: none Worsens with: other (palpation) Associated Symptoms: denies other symptoms. denies: chest pain, cough, diaphoresis, fever/chills, headaches, loss of appetite, malaise, nausea/vomiting, rash, seizure, shortness of breath, syncope, weakness, other Treatments Prior to Arrival: none - Related Data Previous Rx's Medication Instructions Recorded Last Taken Type Ferrous Sulfate 325 mg PO BID #60 tablet. 06/20/17 Unknown Rx Ibuprofen [Motrin] 600 mg PO Q8H PRN #30 tablet 06/20/17 Unknown Rx oxyCODONE /ACETAMINOPHEN [Percocet 1 tab PO Q6HR PRN #30 tablet 06/20/17 Unknown Rx 5/325] Ketorolac [Toradol] 10 mg PO Q6H PRN #15 tablet 10/16/18 Unknown Rx methOCARBAMOL [Robaxin TAB] 750 mg PO Q8H PRN #14 tablet 10/16/18 Unknown Rx Clindamycin [Clindamycin CAP] 300 mg PO Q8H #21 cap 09/08/19 Unknown Rx Naproxen 500 mg PO Q12H PRN #12 tablet 09/08/19 Unknown Rx Naproxen 500 mg PO Q12H PRN #12 tablet 12/22/19 Unknown Rx Ibuprofen [Motrin] 800 mg PO Q8HR PRN #30 tablet 06/30/20 Unknown Rx cephALEXin [Keflex] 500 mg PO Q8HR #30 cap 06/30/20 Unknown Rx Allergies Allergy/AdvReac Type Severity Reaction Status Date / Time No Known Allergies Allergy Verified 06/30/20 18:07 ED Review of Systems ROS: Stated complaint: PAIN IN BREAST/BOTH Other details as noted in HPI Constitutional: denies: chills, fever Eyes: denies: eye pain, eye discharge, vision change ENT: denies: ear pain, throat pain Respiratory: denies: cough, shortness of breath, wheezing Cardiovascular: denies: chest pain, palpitations Endocrine: no symptoms reported Gastrointestinal: denies: abdominal pain, nausea, diarrhea Genitourinary: denies: urgency, dysuria, discharge Musculoskeletal: denies: back pain, joint swelling, arthralgia Skin: denies: rash, lesions Neurological: denies: headache, weakness, paresthesias Psychiatric: denies: anxiety, depression Hematological/Lymphatic: other (Bilateral breast pain). denies: easy bleeding, easy bruising ED Past Medical Hx - Past Medical History Hx Hypertension: No Hx Congestive Heart Failure: No Hx Diabetes: No Hx Deep Vein Thrombosis: No Hx Renal Disease: No Hx Sickle Cell Disease: Yes (trait) Hx Seizures: No Hx Psychiatric Treatment: Yes (DEPRESSION) Hx Asthma: No Hx COPD: No Hx HIV: No - Surgical History Additional Surgical History: x1, 2018 - Social History Smoking Status: Never Smoker Substance Use Type: None - Medications Home Medications: Home Medications Medication Instructions Recorded Confirmed Last Taken Type Ferrous Sulfate 325 mg PO BID #60 tablet. 06/20/17 Unknown Rx Ibuprofen [Motrin] 600 mg PO Q8H PRN #30 tablet 06/20/17 Unknown Rx oxyCODONE /ACETAMINOPHEN [Percocet 1 tab PO Q6HR PRN #30 tablet 06/20/17 Unknown Rx 5/325] Ketorolac [Toradol] 10 mg PO Q6H PRN #15 tablet 10/16/18 Unknown Rx methOCARBAMOL [Robaxin TAB] 750 mg PO Q8H PRN #14 tablet 10/16/18 Unknown Rx Clindamycin [Clindamycin CAP] 300 mg PO Q8H #21 cap 09/08/19 Unknown Rx Naproxen 500 mg PO Q12H PRN #12 tablet 09/08/19 Unknown Rx Naproxen 500 mg PO Q12H PRN #12 tablet 12/22/19 Unknown Rx Ibuprofen [Motrin] 800 mg PO Q8HR PRN #30 tablet 06/30/20 Unknown Rx cephALEXin [Keflex] 500 mg PO Q8HR #30 cap 06/30/20 Unknown Rx ED Physical Exam - General Limitations: No Limitations General appearance: alert, in no apparent distress, obese - Head Head exam: Present: atraumatic, normocephalic, normal inspection - Eye Eye exam: Present: normal appearance, PERRL, EOMI Pupils: Present: normal accommodation - ENT ENT exam: Present: normal exam, normal orophraynx, mucous membranes moist, TM's normal bilaterally, normal external ear exam - Neck Neck exam: Present: normal inspection, full ROM - Respiratory Respiratory exam: Present: normal lung sounds bilaterally, chest wall tenderness (Palpable reproducible bilateral breast tenderness around the areola area), other (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 Absent: respiratory distress, wheezes, rales, rhonchi, stridor - Cardiovascular Cardiovascular Exam: Present: regular rate, normal rhythm, normal heart sounds. Absent: systolic murmur, diastolic murmur, rubs, gallop - GI/Abdominal GI/Abdominal exam: Present: soft, normal bowel sounds. Absent: distended, tenderness, guarding, rebound, hyperactive bowel sounds, hypoactive bowel sounds, organomegaly - Extremities Exam Extremities exam: Present: normal inspection, full ROM, normal capillary refill - Back Exam Back exam: Present: normal inspection, full ROM. Absent: CVA tenderness (L), muscle spasm, paraspinal tenderness, vertebral tenderness - Neurological Exam Neurological exam: Present: alert, oriented X3, CN II-XII intact, normal gait, reflexes normal - Psychiatric Psychiatric exam: Present: normal affect, normal mood - Skin Skin exam: Present: warm, dry, intact, normal color. Absent: rash ED Course Vital Signs 06/30/20 18:10 Temperature 96.6 F L Pulse Rate 92 H Respiratory 20 Rate Blood Pressure 118/64 [Right] O2 Sat by Pulse 98 Oximetry ED Medical Decision Making - Medical Decision Making This is a A0 25-year-old -Citizen Of [place] female with a history of anxiety and depression as well as morbid obesity who presents to the ED with complaint of acute onset persistent nontraumatic bilateral breast pain for the last 2 days. Patient states that she is also late on her menstrual cycle as her LMP was May 06 through May 17, 2020. Patient states that the pain is worse with palpation of the chest or when she lays down and that the pain is around her areola. In the ED, patient is alert and oriented x3 and is not in any distress. Patient was treated for pain in the ED with Tylenol. Urinalysis and urine hCG test were ordered. Urinalysis showed significant urinary tract infection. Urine hCG test was negative. Patient was therefore discharged home on pain medications and oral antibiotics for UTI. Patient symptoms of bilateral breast pain is consistent with acute fibrocystic breast disease. Patient was therefore advised to follow-up with her primary care physician or [facility] physician in 7 to 10 days for reevaluation or return to the ED immediately if symptoms get worse. - Differential Diagnosis ; fibrocystic breast disease; mastitis; UTI Critical care attestation.: If time is entered above; I have spent that time in minutes in the direct care of this critically ill patient, excluding procedure time. ED Disposition Clinical Impression: Acute urinary tract infection Fibrocystic breast disease (FCBD) in female Qualifiers: Laterality: unspecified laterality Qualified Code(s): N60.19 - Diffuse cystic mastopathy of unspecified breast Disposition: TO HOME OR SELFCARE Is pt being admited?: No Does the pt Need Aspirin: No Condition: Stable Instructions: Breast Self-Awareness, [id number], Fibrocystic Breast Changes, [id number], Urinary Tract Infection, Adult, [id number] Additional Instructions: Take medication with food, drink plenty of fluids and follow-up with your primary care physician in 7 to 10 days for reevaluation. Return to the ED immediately if symptoms get worse. Prescriptions: cephALEXin [Keflex] 500 mg PO Q8HR #30 cap Ibuprofen [Motrin] 800 mg PO Q8HR PRN #30 tablet PRN Reason: Pain , Severe (7-10) Referrals: [facility] [Provider Group] - 3-5 Days JERRICA NIXON MD [Staff Physician] - 3-5 Days Time of Disposition: 20:55 Print Language: THAI
[2020-06-30 20:56] LABS: Bilirubin,Urine NEG (Negative); Blood,Urine SM (Negative); Color,Urine Yellow (Yellow); Mucus,Urine FEW /HPF; Protein,Urine <15 mg/dL mg/dL (Negative); Urobilinogen,Urine < 2.0 mg/dL (<2.0)
[2020-06-30 20:57] LABS: HCG Qualitative,Urine Negative (Negative)
== END 2020-06-30 21:20 | disposition home or self-care (01) ==
LOC: ED 18:05
DX: N39.0 Urinary tract infection, site not specified (principal); N60.12 Diffuse cystic mastopathy of left breast; N60.11 Diffuse cystic mastopathy of right breast; F32.9 Major depressive disorder, single episode, unspecified; Z79.899 Other long term (current) drug therapy
CPT/HCPCS: 81001; 81025; 87076; 87086; 87186; 99283